=== PATIENT | female | born 1940 ===

== ENCOUNTER 2016-12-04 13:47 | Emergency (ER) | payer MEDICARE, MEDICAID ==
[2016-12-04 13:56] VITALS: BP 136/68; PULSE 58; RESP 16; TEMP 98; O2SAT 97
--- NOTE | 2016-12-04 14:42 | ED PDOC ---
Arrival/HPI - General Chief Complaint: Dizziness/Lightheaded Time Seen by Provider: 12/04/16 14:40 Historian: Patient, Family, Program Director [employer] (Juanpablonavid Loyda) - History of Present Illness Narrative History of Present Illness (Text): 12/04/16 14:17 A 76 year old female whose past medical history includes hypertension, presents to the emergency department (Program Director [employer] Loyda Chappell present) complaining of pressure behind her eyes and lightheadedness. The patient denies felling dizzy, contrary to triage.The patient is currently asymptomatic. Pt states these symptoms are similar to the symptoms she gets when her BP fluctuates or runs higher than usual. Reports compliance with metoprolol and lisinoprol. She notes that she has an appointment with her PMD tomorrow morning. Time/Duration: 1-3 hours, Other (Today) Symptom Onset: Sudden Symptom Course: Improving Context: Home Past Medical History - Provider Review Nursing Documentation Reviewed: Yes - Cardiac Hx Cardiac Disorders: Yes Hx Hypertension: Yes - Pulmonary Hx Respiratory Disorders: No - Neurological Hx Neurological Disorder: No - HEENT Hx HEENT Disorder: No - Renal Hx Renal Disorder: No - Endocrine/Metabolic Hx Endocrine Disorders: Yes Hx Hypothyroidism: Yes - Hematological/Oncological Hx Blood Disorders: No - Integumentary Hx Dermatological Disorder: No - Musculoskeletal/Rheumatological Hx Musculoskeletal Disorders: No - Gastrointestinal Hx Gastrointestinal Disorders: No - Genitourinary/Gynecological Hx Genitourinary Disorders: No - Psychiatric Hx Psychophysiologic Disorder: No Hx Substance Use: No - Surgical History Hx Appendectomy: Yes Family/Social History - Physician Review Nursing Documentation Reviewed: Yes Family/Social History: No Known Family HX Smoking Status: Never Smoked Hx Alcohol Use: No Hx Substance Use: No Allergies/Home Meds Allergies/Adverse Reactions: Allergies No Known Allergies Allergy (Verified 12/04/16 13:56) Home Medications: Home Meds Medication Instructions Recorded Confirmed Aspirin [Aspirin Chewable] 81 mg PO DAILY 12/04/16 12/04/16 Levothyroxine [Synthroid] 75 mcg PO DAILY 12/04/16 12/04/16 Lisinopril [Zestril] 2.5 mg PO DAILY 12/04/16 12/04/16 Metoprolol Tartrate [Lopressor] 25 mg PO BID 12/04/16 12/04/16 Simvastatin [Zocor] 20 mg PO HS 12/04/16 12/04/16 Review of Systems - Physician Review All systems were reviewed & negative as marked: Yes Physical Exam - Physical Exam Narrative Physical Exam (Text): 12/04/16 12:43 - Review of Systems Constitutional: Normal. absent: Fatigue, Weight Change, Fevers Eyes: (+) Pressure behind eyes. ENT: Normal Respiratory: Normal absent: SOB, Cough, Sputum Cardiovascular: Normal absent: Chest pain, Palpitations, Syncope Gastrointestinal: Normal absent: Abdominal pain, Diarrhea, Nausea, Vomiting Genitourinary: Normal. absent: Dysuria, Frequency, Hematuria Musculoskeletal: Normal. absent: Arthralgias, Back Pain, Neck Pain Skin: Normal Neurological: (+) Lightheadedness. absent: Focal Weakness Endocrine: Normal Hemo/Lymphatic: Normal Psychiatric: Normal - Physical exam Patient appears age appropriate, speaking full sentences without difficulty - Systems Exam Head: Present: Atraumatic, Normocephalic Pupils: Present: PERRL Extraocular Muscles: Present: EOMI Conjunctiva: Present: Normal Mouth: Present: Moist Mucous Membranes Neck: Present: Normal Range of Motion. No: MIDLINE TENDERNESS, Paraspinal Tenderness Respiratory/Chest: Present: Clear to Auscultation, Good Air Exchange. No: Respiratory Distress, Accessory Muscle Use, Tachypnic Cardiovascular: Present: Regular Rate and Rhythm, Normal S1, S2, Peripheral Pulses Present. No: Murmurs Abdomen: Present: Normal Bowel Sounds, No: Tenderness, Peritoneal Signs, Rebound, Guarding, Distention Back: Present: Normal Inspection. No: Midline Tenderness, Paraspinal Tenderness Upper Extremity: Present: Normal Inspection. No: Cyanosis, Edema Lower Extremity: Present: Normal Inspection. No: Edema Neurological: Present: GCS=15, Speech Normal, cranial nerves II through XII fully intact with no cerebellar abnormality, neuro-sensory fully intact. No focal neurological deficits. Skin: Present: Warm, Dry, Normal Color. No: Rashes Lymphatic: Present: OX3, NI, NC Psychiatric: Present: Alert, Oriented x 3, Normal Insight, Normal Concentration Vital Signs Reviewed: Yes Vital Signs Temp Pulse Resp BP Pulse Ox 12/04/16 13:50 98 F 58 L 16 136/68 97 Temperature: Afebrile Blood Pressure: Normal Pulse: Bradycardic Respiratory Rate: Normal Appearance: Positive for: Well-Appearing Pain Distress: None Mental Status: Positive for: Alert and Oriented X 3 Medical Decision Making ED Course and Treatment: 12/04/16 15:05 Impression: A 76 year old female patient with a complaint of lightheadedness and pressure behind eyes. States these symptoms are similar to her previous HTN symptoms and when she has BP fluctuations. Pt has no focal neurological deficits on examination and denies any complaints at this time. States she has an appt with PMD tmr. States she feels comfortable being dc'd home with outpatient f/u family bedside Pt states she understands to return to the ER right away for new or worsening symptoms or for inability to f/u with PMD or specialist as instructed. Patient states that she fully agrees with and understands discharge instructions. States that she agrees with the plan and disposition. Verbalized and repeated discharge instructions and plan. I have given the patient opportunity to ask any additional questions. - Scribe Statement The provider has reviewed the documentation as recorded by the Scribe Loyda Chappell Provider Scribe Attestation: All medical record entries made by the Scribe were at my direction and personally dictated by me. I have reviewed the chart and agree that the record accurately reflects my personal performance of the history, physical exam, medical decision making, and the department course for this patient. I have also personally directed, reviewed, and agree with the discharge instructions and disposition. Disposition/Present on Arrival - Present on Arrival Any Indicators Present on Arrival: No History of DVT/PE: No History of Uncontrolled Diabetes: No Urinary Catheter: No History of Decub. Ulcer: No History Surgical Site Infection Following: None - Disposition Have Diagnosis and Disposition been Completed?: Yes Diagnosis: Hypertension Disposition: HOME/ ROUTINE Disposition Time: 14:41 Patient Plan: Discharge Patient Problems: Current Active Problems Problem Status Onset Hypertension Acute Condition: GOOD Discharge Instructions (ExitCare): Hypertension (ED) Additional Instructions: PLEASE RETURN TO THE EMERGENCY DEPARTMENT FOR NEW OR WORSENING SYMPTOMS. RETURN RIGHT AWAY IF YOU CANNOT FOLLOW UP WITH YOUR PRIMARY CARE DOCTOR, CLINIC, OR SPECIALIST IN 1-2 DAYS. Forms: [employer] (Sinhala)
== END 2016-12-04 15:05 | disposition home or self-care (01) ==
LOC: ED 13:47
DX: I10 Essential (primary) hypertension (principal)

== ENCOUNTER 2017-06-13 23:06 | Emergency (ER) | payer MEDICARE, MEDICAID ==
[2017-06-14 00:21] VITALS: PULSE 87; TEMP 99.4
--- NOTE | 2017-06-14 00:47 | ED PDOC ---
Arrival/HPI - General Chief Complaint: Flu-like Symptoms Time Seen by Provider: 06/14/17 00:30 Historian: Patient, Family (Daughter) - History of Present Illness Narrative History of Present Illness (Text): 06/14/17 00:44 A 77 year old female , whose past medical history includes hypertension, hyperlipidemia, presents to the emergency department complaining of, as per the daughter, 3 day duration cold-like symptoms. The patient's daughter notes that the patient has been having a cough, fever, and chest pain. The patient states that the chest pain is exacerbated when she coughs. The patient notes that she had generalized body aches, but is currently only experiencing back pain. The patient did receive the flu shot in January 2017. She notes that she has been taking Yumiko [place] Plus for her symptoms. The patient denies headache, dizziness, shortness of breath, dyspnea on exertion, abdominal pain, nausea, vomiting, diarrhea, neck pain, urinary/bowel changes, or any other complaint. PMD: Dr. Connors Time/Duration: Other (3 Days) Symptom Onset: Sudden Symptom Course: Unchanged Activities at Onset: Rest, Light Context: Home Past Medical History - Provider Review Nursing Documentation Reviewed: Yes - Cardiac Hx Cardiac Disorders: Yes Hx Hypertension: Yes - Pulmonary Hx Respiratory Disorders: No - Neurological Hx Neurological Disorder: No - HEENT Hx HEENT Disorder: No - Renal Hx Renal Disorder: No - Endocrine/Metabolic Hx Endocrine Disorders: Yes Hx Hypothyroidism: Yes - Hematological/Oncological Hx Blood Disorders: No - Integumentary Hx Dermatological Disorder: No - Musculoskeletal/Rheumatological Hx Musculoskeletal Disorders: No - Gastrointestinal Hx Gastrointestinal Disorders: No - Genitourinary/Gynecological Hx Genitourinary Disorders: No - Psychiatric Hx Psychophysiologic Disorder: No Hx Substance Use: No - Surgical History Hx Appendectomy: Yes Family/Social History - Physician Review Nursing Documentation Reviewed: Yes Family/Social History: No Known Family HX Smoking Status: Never Smoked Hx Alcohol Use: No Hx Substance Use: No Allergies/Home Meds Allergies/Adverse Reactions: Allergies No Known Allergies Allergy (Verified 12/04/16 13:56) Home Medications: Home Meds Medication Instructions Recorded Confirmed Aspirin [Aspirin Chewable] 81 mg PO DAILY 12/04/16 06/14/17 Levothyroxine [Synthroid] 75 mcg PO DAILY 12/04/16 06/14/17 Lisinopril [Zestril] 2.5 mg PO DAILY 12/04/16 06/14/17 Metoprolol Tartrate [Lopressor] 25 mg PO BID 12/04/16 06/14/17 Simvastatin [Zocor] 20 mg PO HS 12/04/16 06/14/17 Verapamil [Verapamil HCl] 40 mg PO DAILY 06/14/17 06/14/17 Review of Systems - Physician Review All systems were reviewed & negative as marked: Yes - Review of Systems Constitutional: Fevers Respiratory: Cough Cardiovascular: Chest Pain. absent: LEMUS Gastrointestinal: absent: Abdominal Pain, Diarrhea, Nausea, Vomiting Musculoskeletal: Back Pain. absent: Neck Pain Neurological: absent: Headache, Dizziness Physical Exam Vital Signs Reviewed: Yes Vital Signs Temp Pulse Resp BP Pulse Ox 06/14/17 00:21 99.4 F 87 20 151/87 H 97 Temperature: Afebrile Blood Pressure: Hypertensive Pulse: Regular Respiratory Rate: Normal Appearance: Positive for: Well-Appearing, Non-Toxic, Comfortable Pain Distress: None Mental Status: Positive for: Alert and Oriented X 3 - Systems Exam Head: Present: Atraumatic, Normocephalic Pupils: Present: PERRL Extroacular Muscles: Present: EOMI Conjunctiva: Present: Normal Mouth: Present: Moist Mucous Membranes Neck: Present: Normal Range of Motion Respiratory/Chest: Present: Clear to Auscultation, Good Air Exchange. No: Respiratory Distress, Accessory Muscle Use Cardiovascular: Present: Regular Rate and Rhythm, Normal S1, S2. No: Murmurs Abdomen: Present: Normal Bowel Sounds. No: Tenderness, Distention, Peritoneal Signs Back: Present: Normal Inspection Upper Extremity: Present: Normal Inspection. No: Cyanosis, Edema Lower Extremity: Present: Normal Inspection. No: Edema Neurological: Present: GCS=15, CN II-XII Intact, Speech Normal Skin: Present: Warm, Dry, Normal Color. No: Rashes Psychiatric: Present: Alert, Oriented x 3, Normal Insight, Normal Concentration Medical Decision Making ED Course and Treatment: 06/14/17 00:48 Impression: A 77 year old female presents to the emergency department complaining of fever, cough, chest pain, back pain for 3 days. Plan: -- Chest X-ray -- Urinalysis -- Blood Culture -- Labs -- Reassess and disposition Progress Notes: 06/14/17 03:05: Discussed positive flue test result with patient. Will discharge patient home on Tamiflu. Patient is aware of and agrees with plan. - Lab Interpretations Lab Results: 06/14/17 00:50 06/14/17 00:50 Lab Results 06/14/17 01:25: Urine Color Yellow, Urine Appearance Sl cloudy, Urine pH 8.0, Ur Specific [place] 1.015, Urine Protein Negative, Urine Glucose (UA) Negative, Urine Ketones Negative, Urine Blood Small H, Urine Nitrate Negative, Urine Bilirubin Negative, Urine Urobilinogen 0.2, Ur Leukocyte Esterase Trace H, Urine RBC 1 - 3, Urine WBC 1 - 3, Ur Epithelial Cells 0 - 2, Urine Bacteria Few 06/14/17 00:50: Sodium 141, Chloride 104, Potassium 4.4, Carbon Dioxide 27, Anion Gap 14, BUN 9, Creatinine 0.6 L, Est GFR ( Amer) > 60, Est GFR (Non -Af Amer) > 60, Random Glucose 107, Calcium 10.5, Total Bilirubin 0.4, AST 46 H , ALT 50, Alkaline Phosphatase 99, Total Protein 7.9, Albumin 4.4, Globulin 3.5 , Albumin/Globulin Ratio 1.3 06/14/17 00:50: pO2 36, VBG pH 7.38, VBG pCO2 46.0, VBG HCO3 27.2, VBG Total CO2 28.6 H, VBG O2 Sat (Calc) 76.6 H, VBG Base Excess 1.5, VBG Potassium 4.2, Sodium 138.0, Chloride 105.0, Glucose 107 H, Lactate 1.4, FiO2 21.0, Venous Blood Potassium 4.2 06/14/17 00:50: Influenza Typ A,B (EIA) Pos for influenza a H 06/14/17 00:50: WBC 6.2, RBC 4.48, Hgb 13.7, Hct 41.5, MCV 92.6, MCH 30.6, MCHC 33.0, RDW 14.0, Plt Count 202, MPV 11.0, Gran % 54.9, Lymph % (Auto) 30.6, [place] % (Auto) 12.9 H, Eos % (Auto) 1.4 L, Baso % (Auto) 0.2, Gran # 3.41, Lymph # ( Auto) 1.9, [place] # (Auto) 0.8 H, Eos # (Auto) 0.1, Baso # (Auto) 0.01 I have reviewed the lab results: Yes - RAD Interpretation Radiology Orders: 06/14/17 00:38 CXR [CHEST TWO VIEWS (PA/LAT)] [RAD] Stat - Medication Orders Current Medication Orders: Discontinued Medications Oseltamivir Phosphate (Tamiflu Cap) 75 mg PO ONCE ONE PRN Reason: Protocol Stop: 06/14/17 02:42 Last Admin: 06/14/17 03:02 Dose: 75 mg - PA / FAMILY NURSE / Resident Statement MD/DO has reviewed & agrees with the documentation as recorded. - Scribe Statement The provider has reviewed the documentation as recorded by the Yosefibnavid Chappell Provider Scribe Attestation: All medical record entries made by the Scribe were at my direction and personally dictated by me. I have reviewed the chart and agree that the record accurately reflects my personal performance of the history, physical exam, medical decision making, and the department course for this patient. I have also personally directed, reviewed, and agree with the discharge instructions and disposition. Disposition/Present on Arrival - Present on Arrival Any Indicators Present on Arrival: No History of DVT/PE: No History of Uncontrolled Diabetes: No Urinary Catheter: No History of Decub. Ulcer: No History Surgical Site Infection Following: None - Disposition Have Diagnosis and Disposition been Completed?: Yes Diagnosis: Influenza A Disposition: HOME/ ROUTINE Disposition Time: 02:46 Patient Plan: Discharge Patient Problems: Current Active Problems Problem Status Onset Influenza A Acute Condition: GOOD Discharge Instructions (ExitCare): Influenza (ED) Prescriptions: Oseltamivir [Tamiflu] 75 mg PO BID #10 cap Forms: [employer] (Persian)
[2017-06-14 01:12] LABS: BASO # 0.01 K/mm3 (0.0-2.0); BASO % 0.2 % (0.0-3.0); EOS # 0.1 (0.0-0.7); EOS % 1.4 % (1.5-5.0); GRAN # 3.41 (1.4-6.5); GRAN % 54.9 % (50.0-68.0); HEMOGLOBIN 13.7 g/dL (12.0-16.0); LYMPH # 1.9 (1.2-3.4); LYMPH % 30.6 % (22.0-35.0); MEAN CELL VOLUME 92.6 fl (80.0-105.0); MEAN CORPUSCULAR HEMOGLOBIN 30.6 pg (25.0-35.0); MONO # 0.8 (0.1-0.6); MONO % 12.9 % (1.0-6.0); RBC 4.48 10^6/uL (3.5-6.1); WHITE BLOOD COUNT 6.2 10^3/ul (4.5-11.0)
[2017-06-14 01:31] LABS: ALB/GLOB RATIO 1.3 (1.1-1.8); ALBUMIN 4.4 g/dL (3.0-4.8); ALT/SGPT 50 U/L (7-56); AST/SGOT 46 U/L (14-36); BLOOD UREA NITROGEN 9 mg/dL (7-21); CALCIUM 10.5 mg/dL (8.4-10.5); GFR AFRICAN-AMERICAN > 60; GFR NON-AFRICAN AMERICAN > 60
[2017-06-14 01:36] LABS: VENOUS BLOOD GAS BASE EXCESS 1.5 mmol/L (0.0-2.0); VENOUS BLOOD GAS PO2 36 mm/Hg (30-55); VENOUS BLOOD PH 7.38 (7.32-7.43)
[2017-06-14 02:10] LABS: URINE APPEARANCE SL CLOUDY (CLEAR); URINE BILIRUBIN NEGATIVE (NEGATIVE); URINE BLOOD SMALL (NEGATIVE); URINE COLOR YELLOW (YELLOW); URINE GLUCOSE (UA) NEGATIVE (NEGATIVE); URINE LEUKOCYTE ESTERASE TRACE Leu/uL (NEGATIVE); URINE NITRATE NEGATIVE (NEGATIVE); URINE PROTEIN NEGATIVE mg/dL (<30 mg/dL); URINE UROBILINOGEN 0.2 E.U./dL (<1 E.U./dL)
[2017-06-14 02:28] LABS: URINE BACTERIA FEW (NEG); URINE EPITHELIAL CELLS 0 - 2 /hpf (0-5)
[2017-06-14 03:23] VITALS: BP 138/70; RESP 18; O2SAT 99
--- NOTE | 2017-06-14 09:34 | RAD ---
HISTORY: cough COMPARISON: Comparison is made with 06/12/2013 TECHNIQUE: Chest PA and lateral FINDINGS: LUNGS: Small hazy opacity seen at the left lung base may represent atelectasis or pneumonia. PLEURA: No significant pleural effusion identified. No pneumothorax apparent. CARDIOVASCULAR: Normal. OSSEOUS STRUCTURES: No significant abnormalities. VISUALIZED UPPER ABDOMEN: Normal. OTHER FINDINGS: None. IMPRESSION: Small opacity at the left lung base may represent atelectasis or pneumonia.
== END 2017-06-14 03:23 | disposition home or self-care (01) ==
LOC: ED 23:06
DX: J09.X2 Influenza due to identified novel influenza A virus with other respiratory manifestations (principal); I10 Essential (primary) hypertension; E78.5 Hyperlipidemia, unspecified

== ENCOUNTER 2018-09-15 15:55 | Inpatient (IN) | payer MEDICARE, MEDICAID ==
[2018-09-15 16:04] VITALS: BMI 26.2
[2018-09-15] MEDS ORDERED: Sodium Chloride 0.9% 1,000 ML IV STA (16:15)
--- NOTE | 2018-09-15 16:37 | ED PDOC ---
Arrival/HPI - General Chief Complaint: Fever Time Seen by Provider: 09/15/18 15:59 Historian: Patient - History of Present Illness Narrative History of Present Illness (Text): 09/15/18 15:59 Margarita Elliott is a 78 year old female, with a past medical history of hypertension and hyperlipidemia, who presents to the emergency department complaining of fever and body aches since 2 days. Patient also notes mild headache, chills urinary frequency, and generalized weakness. Patient informs of fever at 101.3 F. Patient denies nasal congestion, headaches, dizziness, photophobia, chest pain, shortness of breath, cough, abdominal pain, nausea, vomiting, diarrhea, dysuria, hematuria, bloody / dark stools, sick contact, or any other complaints. Time/Duration: < week (2 days) Symptom Onset: Gradual Activities at Onset: Light Context: Home Past Medical History - Provider Review Nursing Documentation Reviewed: Yes - Cardiac Hx Cardiac Disorders: Yes Hx Hypertension: Yes - Pulmonary Hx Respiratory Disorders: No - Neurological Hx Neurological Disorder: No - HEENT Hx HEENT Disorder: No - Renal Hx Renal Disorder: No - Endocrine/Metabolic Hx Endocrine Disorders: Yes Hx Hypothyroidism: Yes - Hematological/Oncological Hx Blood Disorders: No - Integumentary Hx Dermatological Disorder: No - Musculoskeletal/Rheumatological Hx Musculoskeletal Disorders: No - Gastrointestinal Hx Gastrointestinal Disorders: Yes - Genitourinary/Gynecological Hx Genitourinary Disorders: No - Psychiatric Hx Psychophysiologic Disorder: No Hx Substance Use: No - Surgical History Hx Appendectomy: Yes - Anesthesia Hx Anesthesia: Yes Hx Anesthesia Reactions: No Hx Malignant Hyperthermia: No Family/Social History - Physician Review Nursing Documentation Reviewed: Yes Family/Social History: Unknown Family HX Smoking Status: Never Smoked Hx Alcohol Use: No Hx Substance Use: No Allergies/Home Meds Allergies/Adverse Reactions: Allergies No Known Allergies Allergy (Verified 12/04/16 13:56) Home Medications: Home Meds Medication Instructions Recorded Confirmed Aspirin [Aspirin Chewable] 81 mg PO DAILY 12/04/16 10/18/17 Levothyroxine [Synthroid] 75 mcg PO DAILY 12/04/16 10/18/17 Metoprolol Tartrate [Lopressor] 25 mg PO BID 12/04/16 10/18/17 Simvastatin [Zocor] 20 mg PO HS 12/04/16 10/18/17 Verapamil [Verapamil HCl] 40 mg PO DAILY 06/14/17 10/18/17 Review of Systems - Physician Review All systems were reviewed & negative as marked: Yes - Review of Systems Constitutional: Fevers, Other (body aches, chills, generalized weakness) Eyes: absent: Photophobia Respiratory: absent: SOB, Cough Cardiovascular: absent: Chest Pain Gastrointestinal: absent: Abdominal Pain, Diarrhea, Nausea, Vomiting, Hematochezia, Other (melena) Genitourinary Female: Frequency. absent: Dysuria, Hematuria Neurological: absent: Headache, Dizziness Physical Exam Vital Signs Reviewed: Yes Vital Signs Temp Pulse Resp BP Pulse Ox 09/15/18 16:17 98.7 F 74 18 123/50 L 96 Temperature: Afebrile Blood Pressure: Normal Pulse: Regular Respiratory Rate: Normal Appearance: Positive for: Well-Appearing, Non-Toxic, Comfortable Pain Distress: None Mental Status: Positive for: Alert and Oriented X 3 - Systems Exam Head: Present: Atraumatic, Normocephalic Pupils: Present: PERRL Extroacular Muscles: Present: EOMI Conjunctiva: Present: Normal Mouth: Present: Moist Mucous Membranes Neck: Present: Normal Range of Motion. No: Meningeal Signs (negative brudzinski's sign, negative kerning sign. ) Respiratory/Chest: Present: Clear to Auscultation, Good Air Exchange. No: Respiratory Distress, Accessory Muscle Use Cardiovascular: Present: Regular Rate and Rhythm, Normal S1, S2. No: Murmurs Abdomen: Present: Normal Bowel Sounds. No: Tenderness, Distention, Peritoneal Signs, Rebound, Guarding Back: Present: Normal Inspection Upper Extremity: Present: Normal Inspection, Neurovascularly Intact, Other (5/5 strength, negative Kernig's sign). No: Cyanosis, Edema Lower Extremity: Present: Normal Inspection, Neurovascularly Intact, Other (5/5 strength). No: Edema Neurological: Present: GCS=15, CN II-XII Intact, Speech Normal, Motor Func Grossly Intact, Normal Sensory Function Skin: Present: Warm, Dry, Normal Color. No: Rashes Psychiatric: Present: Alert, Oriented x 3, Normal Insight, Normal Concentration Medical Decision Making ED Course and Treatment: 09/15/18 15:59 Impression: Patient is a 78 year old female, with a past medical history hypertension, hyperlipidemia, and hypothyroidism, who presents to the emergency department complaining of fevers and body aches since 2 days. Plan: -- Reassess and disposition Prior Visits: Notes and results from previous visits were reviewed. Patient was last seen in the emergency department on Progress Notes: 09/15/18 17:32 Patient noted to have elevated liver enzymes, alk phos and bili. Her abdominal exam is normal. No tenderness. ND. BS x4. US ordered STAT. Acetaminophen and Hepatititis level. 09/15/18 18:34 Abdominal US Dictator : Drew Guadarrama MD IMPRESSION: Cholelithiasis. No sonographic evidence of acute cholecystitis. Mild fullness right collecting system. No visible obstructing lesion noted. Case discussed with Dr. Morrow who will admit this patient to her service and is requesting Dr. Wise for GI. 09/15/18 18:50 I discussed this case with Dr. Claudio AGUILA who recommends adding an LDH and treating with Rocephin IV. He will order an MRCP for tomorrow. Results were discussed with family. - Critical Care Critical Care Minutes: 30 minutes - RAD Interpretation Radiology Orders: 09/15/18 16:14 CHEST PORTABLE [RAD] Stat - EKG Interpretation EKG Interpretation (Text): 09/15/18 15:59 Reviewed EKG, shows: NSR at 70 BPM. Incomplete RBBB. Interpreted by ED Physician: Yes Type: 12 lead EKG - Medication Orders Current Medication Orders: Sodium Chloride (Sodium Chloride 0.9%) 1,000 mls @ 999 mls/hr IV .Q1H1M STA Stop: 09/15/18 17:15 - Scribe Statement The provider has reviewed the documentation as recorded by the Scribnavid Hernandez All medical record entries made by the Scribe were at my direction and personally dictated by me. I have reviewed the chart and agree that the record accurately reflects my personal performance of the history, physical exam, medical decision making, and the department course for this patient. I have also personally directed, reviewed, and agree with the discharge instructions and disposition. Disposition/Present on Arrival - Present on Arrival Any Indicators Present on Arrival: No History of DVT/PE: No History of Uncontrolled Diabetes: No Urinary Catheter: No History of Decub. Ulcer: No History Surgical Site Infection Following: None - Disposition Have Diagnosis and Disposition been Completed?: Yes Diagnosis: Elevated transaminase level, Fever, Cholelithiasis Disposition: HOSPITALIZED Disposition Time: 18:36 Patient Plan: Admission Patient Problems: Current Active Problems Problem Status Onset Elevated transaminase level Acute Fever Acute Condition: FAIR
[2018-09-15 16:46] LABS: VENOUS BLOOD GAS BASE EXCESS -3.4 mmol/L (0.0-2.0); VENOUS BLOOD GAS PO2 70 mm/Hg (30-55); VENOUS BLOOD PH 7.41 (7.32-7.43)
[2018-09-15 17:03] LABS: BASO # 0.01 K/mm3 (0.0-2.0); BASO % 0.2 % (0.0-3.0); EOS % 0.5 % (1.5-5.0); HEMOGLOBIN 12.7 g/dL (12.0-16.0); LYMPH # 0.4 (1.2-3.4); LYMPH % 6.6 % (22.0-35.0); MEAN CELL VOLUME 91.1 fl (80.0-105.0); MEAN CORPUSCULAR HEMOGLOBIN 30.4 pg (25.0-35.0); MEAN CORPUSCULAR HGB CONC 33.3 g/dl (31.0-37.0); MEAN PLATELET VOLUME 11.1 fl (7.0-11.0); MONO # 0.3 (0.1-0.6); MONO % 5.4 % (1.0-6.0); RBC 4.18 10^6/uL (3.5-6.1); RED CELL DISTRIBUTION WIDTH 13.5 % (11.5-14.5); WHITE BLOOD COUNT 5.7 10^3/uL (4.5-11.0)
[2018-09-15 17:11] LABS: ALB/GLOB RATIO 1.3 (1.1-1.8); ALBUMIN 4.2 g/dL (3.0-4.8); BLOOD UREA NITROGEN 15 mg/dL (7-21); CALCIUM 9.9 mg/dL (8.4-10.5); GFR NON-AFRICAN AMERICAN > 60
[2018-09-15 17:23] LABS: ALT/SGPT 1338 U/L (7-56); AST/SGOT 1263 U/L (14-36)
[2018-09-15 18:01] LABS: URINE BILIRUBIN NEGATIVE (NEGATIVE); URINE BLOOD SMALL (NEGATIVE); URINE GLUCOSE (UA) NEGATIVE (NEGATIVE); URINE LEUKOCYTE ESTERASE NEGATIVE Leu/uL (NEGATIVE); URINE PROTEIN NEGATIVE mg/dL (<30 mg/dL); URINE UROBILINOGEN 0.2 E.U./dL (<1 E.U./dL)
[2018-09-15 18:03] LABS: URINE APPEARANCE CLEAR (CLEAR); URINE COLOR LIGHT YELLOW (YELLOW)
--- NOTE | 2018-09-15 18:29 | US ---
Date of service: 09/15/2018 HISTORY: elev liver enzymes COMPARISON: None. TECHNIQUE: Sonographic evaluation of the abdomen. FINDINGS: LIVER: Measures 12.6 cm. Patent portal and hepatic venous systems. Hepatopedal blood flow. Fatty infiltration manifest ultrasonographically as increased echogenicity of the liver parenchyma. No mass. No intrahepatic bile duct dilatation. GALLBLADDER: Cholelithiasis. Negative study for gallbladder wall thickening, pericholecystic fluid, sonographic Martinez's sign. COMMON BILE DUCT: Measures 8.7 mm. No stones. No dilatation. PANCREAS: Unremarkable as visualized. No mass. No ductal dilatation. RIGHT KIDNEY: Measures 5.5 x 12cm. Mild fullness in the right collecting system. The ureter is not visible. LEFT KIDNEY: Measures 4.8 x 12.2cm. Normal echogenicity. No calculus, mass, or hydronephrosis. SPLEEN: Normal in size and contour. No mass. AORTA: No aneurysmal dilatation. IVC: Unremarkable. OTHER FINDINGS: None. IMPRESSION: Cholelithiasis. No sonographic evidence of acute cholecystitis. Mild fullness right collecting system. No visible obstructing lesion noted.
[2018-09-15] MEDS ORDERED: cefTRIAXone 1 gm 1 GM/100 ML BAG IVPB STA (18:45)
[2018-09-15 19:23] LABS: INR 1.08; PARTIAL THROMBOPLASTIN TIME 38.8 Seconds (26.9-38.3)
--- NOTE | 2018-09-15 19:27 | CARD ---
APPROVED REPORT Date of service: 09/15/2018 EKG Measurement Heart [id number] <Conclusion> Normal sinus rhythm Incomplete right bundle branch block Borderline ECG
[2018-09-15 22:30] LABS: HEPATITIS B SURFACE AG Negative (NEGATIVE)
[2018-09-15 22:36] LABS: HEPATITIS A IGM NEGATIVE (NEGATIVE); HEPATITIS B CORE AB NEGATIVE (NEGATIVE)
[2018-09-15 22:47] LABS: HEPATITIS C ANTIBODY NEGATIVE (NEGATIVE)
--- NOTE | 2018-09-16 08:22 | RAD ---
Date of service: 09/15/2018 HISTORY: fever COMPARISON: No prior. TECHNIQUE: Chest PA and lateral views FINDINGS: LUNGS: No active pulmonary disease. PLEURA: No significant pleural effusion identified. No pneumothorax apparent. CARDIOVASCULAR: Aortic calcification Normal cardiac size. No pulmonary vascular congestion. OSSEOUS STRUCTURES: No significant abnormalities. VISUALIZED UPPER ABDOMEN: Normal. OTHER FINDINGS: None. IMPRESSION: No active disease.
[2018-09-16 08:32] LABS: ALB/GLOB RATIO 1.2 (1.1-1.8); ALBUMIN 3.8 g/dL (3.0-4.8); ALT/SGPT 891 U/L (7-56); AST/SGOT 613 U/L (14-36); BILIRUBIN,DIRECT 1.8 mg/dL (0.0-0.4); BLOOD UREA NITROGEN 7 mg/dL (7-21); CALCIUM 9.3 mg/dL (8.4-10.5); GFR NON-AFRICAN AMERICAN > 60
--- NOTE | 2018-09-16 09:40 | CP.PCM.CON ---
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 She states she first noticed fever of 101F on Saturday evening. Developed diffuse myalgias and vague RUQ/R flank discomfort yesterday along with dark yellow urine. She came to the ED as symptoms persisted. On routine blood work, patient noted to have elevated LFTs > 10 times the upper limit of normal in a mixed pattern. U/S performed showed a dilated CBD at 8.7mm and cholelithiasis without obvious choledocolithiasis. Presently, she continues to admit to ongoing fever and decreased appetite but otherwise is doing well. Denies change in bowel habits, nausea, vomiting, recent EtOH use, new medications/supplements/vitamins, travel. 12 system ROS performed and negative except where stated PMHx: See HPI PSHx: Gastric wedge resection for GIST, appendectomy FHx: Discussed with patient and she denies significant family history Social: Denies tobacco, EtOH or illicit drug use Endo: September 2017 - EGD/Colon - 10mm nodule in fundus (GIST); diverticulosis, descending colon tubular adenoma October 2017 - EUS/EMR of GIST, + margins, low grade lesion Past Patient History - Past Medical History & Family History Past Medical History?: Yes - Past Social History Smoking Status: Never Smoked - CARDIAC Hx Cardiac Disorders: Yes Hx Hypertension: Yes - PULMONARY Hx Respiratory Disorders: No - NEUROLOGICAL Hx Neurological Disorder: No - HEENT Hx HEENT Problems: No - RENAL Hx Chronic Kidney Disease: No - ENDOCRINE/METABOLIC Hx Endocrine Disorders: Yes Hx Hypothyroidism: Yes - HEMATOLOGICAL/ONCOLOGICAL Hx Blood Disorders: No - INTEGUMENTARY Hx Dermatological Problems: No - MUSCULOSKELETAL/RHEUMATOLOGICAL Hx Musculoskeletal Disorders: No - GASTROINTESTINAL Hx Gastrointestinal Disorders: Yes - GENITOURINARY/GYNECOLOGICAL Hx Genitourinary Disorders: No - PSYCHIATRIC Hx Psychophysiologic Disorder: No - SURGICAL HISTORY Hx Appendectomy: Yes - ANESTHESIA Hx Anesthesia: Yes Hx Anesthesia Reactions: No Hx Malignant Hyperthermia: No Meds Allergies/Adverse Reactions: Allergies Allergy/AdvReac Type Severity Reaction Status Date / Time No Known Allergies Allergy Verified 12/04/16 13:56 - Medications Medications: Current Medications Atorvastatin Calcium (Lipitor) 10 mg PO HS [facility] Last Admin: 09/15/18 22:42 Dose: 10 mg Levothyroxine Sodium (Synthroid) 75 mcg PO DAILY [facility] Metoprolol Tartrate (Lopressor) 25 mg PO BID [facility] Verapamil HCl (Calan Tab) 40 mg PO DAILY [facility] Physical Exam - Constitutional Appears: Non-toxic, No Acute Distress - Eye Exam Eye Exam: EOMI, PERRL - ENT Exam ENT Exam: Mucous Membranes Moist - Respiratory Exam Respiratory Exam: Clear to Auscultation Bilateral. absent: Rales, Rhonchi, Wheezes - Cardiovascular Exam Cardiovascular Exam: RRR, +S1, +S2 - GI/Abdominal Exam GI & Abdominal Exam: Normal Bowel Sounds, Soft. absent: Distended, Firm, Guarding, Hernia, Mass, Organomegaly, Rebound, Rigid, Tenderness - Extremities Exam Extremities exam: Positive for: normal inspection. Negative for: pedal edema - Neurological Exam Neurological exam: Alert, Oriented x3 - Psychiatric Exam Psychiatric exam: Normal Affect, Normal Mood - Skin Skin Exam: Dry, Warm Results - Vital Signs Recent Vital Signs: Last Vital Signs Temp 98.3 F 09/16/18 06:00 Pulse 71 09/16/18 06:00 Resp 18 09/16/18 06:00 BP 125/65 09/16/18 06:00 Pulse Ox 97 09/16/18 06:00 - Labs Result Diagrams: 09/15/18 16:54 09/16/18 08:00 Labs: Laboratory Results - last 24 hr 09/15/18 09/15/18 09/15/18 16:40 16:42 16:54 WBC 5.7 RBC 4.18 Hgb 12.7 Hct 38.1 MCV 91.1 MCH 30.4 MCHC 33.3 RDW 13.5 Plt Count 245 MPV 11.1 H Neut % (Auto) 87.3 H Lymph % (Auto) 6.6 L [place] % (Auto) 5.4 Eos % (Auto) 0.5 L Baso % (Auto) 0.2 Lymph # (Auto) 0.4 L [place] # (Auto) 0.3 Eos # (Auto) 0.0 Baso # (Auto) 0.01 Absolute Neuts (auto) 4.99 PT 12.0 INR 1.08 APTT 38.8 H pO2 70 H VBG pH 7.41 VBG pCO2 32.0 L VBG HCO3 20.3 L VBG Total CO2 21.3 L VBG O2 Sat (Calc) 96.8 H VBG Base Excess -3.4 L VBG Potassium 3.8 Sodium 135.0 Chloride 107.0 Glucose 140 H Lactate 1.2 FiO2 21.0 Potassium Carbon Dioxide Anion Gap BUN Creatinine Est GFR ( Amer) Est GFR (Non-Af Amer) Random Glucose Calcium Magnesium Total Bilirubin Direct Bilirubin AST ALT Alkaline Phosphatase Lactate Dehydrogenase Total Protein Albumin Globulin Albumin/Globulin Ratio Lipase Venous Blood Potassium 3.8 Urine Color Urine Appearance Urine pH Ur Specific [place] Urine Protein Urine Glucose (UA) Urine Ketones Urine Blood Urine Nitrate Urine Bilirubin Urine Urobilinogen Ur Leukocyte Esterase Urine RBC Urine WBC Ur Epithelial Cells Acetaminophen Hepatitis A IgM Ab Hep Bs Antigen Hep B Core IgM Ab Hepatitis C Antibody Influenza Typ A,B (EIA) 09/15/18 09/15/18 09/15/18 16:54 16:54 16:54 WBC RBC Hgb Hct MCV MCH MCHC RDW Plt Count MPV Neut % (Auto) Lymph % (Auto) [place] % (Auto) Eos % (Auto) Baso % (Auto) Lymph # (Auto) [place] # (Auto) Eos # (Auto) Baso # (Auto) Absolute Neuts (auto) PT INR APTT pO2 VBG pH VBG pCO2 VBG HCO3 VBG Total CO2 VBG O2 Sat (Calc) VBG Base Excess VBG Potassium Sodium 137 Chloride 107 Glucose Lactate FiO2 Potassium 4.0 Carbon Dioxide 22 Anion Gap 12 BUN 15 Creatinine 0.7 Est GFR ( Amer) > 60 Est GFR (Non-Af Amer) > 60 Random Glucose 145 H Calcium 9.9 Magnesium 2.2 Total Bilirubin 2.4 H Direct Bilirubin AST 1263 H ALT 1338 H Alkaline Phosphatase 188 H D Lactate Dehydrogenase Total Protein 7.5 Albumin 4.2 Globulin 3.3 Albumin/Globulin Ratio 1.3 Lipase 54 Venous Blood Potassium Urine Color Urine Appearance Urine pH Ur Specific [place] Urine Protein Urine Glucose (UA) Urine Ketones Urine Blood Urine Nitrate Urine Bilirubin Urine Urobilinogen Ur Leukocyte Esterase Urine RBC Urine WBC Ur Epithelial Cells Acetaminophen Hepatitis A IgM Ab Negative Hep Bs Antigen Negative Hep B Core IgM Ab Negative Hepatitis C Antibody Negative Influenza Typ A,B (EIA) 09/15/18 09/15/1819 16:54 16:54 17:00 WBC RBC Hgb Hct MCV MCH MCHC RDW Plt Count MPV Neut % (Auto) Lymph % (Auto) [place] % (Auto) Eos % (Auto) Baso % (Auto) Lymph # (Auto) [place] # (Auto) Eos # (Auto) Baso # (Auto) Absolute Neuts (auto) PT INR APTT pO2 VBG pH VBG pCO2 VBG HCO3 VBG Total CO2 VBG O2 Sat (Calc) VBG Base Excess VBG Potassium Sodium Chloride Glucose Lactate FiO2 Potassium Carbon Dioxide Anion Gap BUN Creatinine Est GFR ( Amer) Est GFR (Non-Af Amer) Random Glucose Calcium Magnesium Total Bilirubin Direct Bilirubin AST ALT Alkaline Phosphatase Lactate Dehydrogenase 3234 H Total Protein Albumin Globulin Albumin/Globulin Ratio Lipase Venous Blood Potassium Urine Color Urine Appearance Urine pH Ur Specific [place] Urine Protein Urine Glucose (UA) Urine Ketones Urine Blood Urine Nitrate Urine Bilirubin Urine Urobilinogen Ur Leukocyte Esterase Urine RBC Urine WBC Ur Epithelial Cells Acetaminophen 17.0 Hepatitis A IgM Ab Hep Bs Antigen Hep B Core IgM Ab Hepatitis C Antibody Influenza Typ A,B (EIA) Negative for flu a/b 09/15/18 09/16/18 17:53 08:00 WBC RBC Hgb Hct MCV MCH MCHC RDW Plt Count MPV Neut % (Auto) Lymph % (Auto) [place] % (Auto) Eos % (Auto) Baso % (Auto) Lymph # (Auto) [place] # (Auto) Eos # (Auto) Baso # (Auto) Absolute Neuts (auto) PT INR APTT pO2 VBG pH VBG pCO2 VBG HCO3 VBG Total CO2 VBG O2 Sat (Calc) VBG Base Excess VBG Potassium Sodium 142 Chloride 112 H Glucose Lactate FiO2 Potassium 4.0 Carbon Dioxide 24 Anion Gap 10 BUN 7 Creatinine 0.5 L Est GFR ( Amer) > 60 Est GFR (Non-Af Amer) > 60 Random Glucose 105 Calcium 9.3 Magnesium Total Bilirubin 2.4 H Direct Bilirubin 1.8 H AST 613 H D ALT 891 H Alkaline Phosphatase 187 H Lactate Dehydrogenase Total Protein 6.9 Albumin 3.8 Globulin 3.1 Albumin/Globulin Ratio 1.2 Lipase Venous Blood Potassium Urine Color Light yellow Urine Appearance Clear Urine pH 7.0 Ur Specific [place] <= 1.005 Urine Protein Negative Urine Glucose (UA) Negative Urine Ketones Negative Urine Blood Small H Urine Nitrate Negative Urine Bilirubin Negative Urine Urobilinogen 0.2 Ur Leukocyte Esterase Negative Urine RBC 1 - 3 H Urine WBC None Ur Epithelial Cells None Acetaminophen Hepatitis A IgM Ab Hep Bs Antigen Hep B Core IgM Ab Hepatitis C Antibody Influenza Typ A,B (EIA) Assessment & Plan - Assessment and Plan (Free Text) Assessment: Patient is a 78yo female with PMHx significant for HTN, dyslipidemia, hypothyroidism, 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 who presented to the ER with complaint of fever and malaise -Elevated LFTs - mixed picture, R/O choledocolithiasis or underlying obstructive lesion -Febrile illness, R/O cholangitis Plan: -Start Ceftriaxone 1g IV QD -Repeat LFTs downtrending, direct hyperbilirubinemia noted -U/S reviewed - CBD dilated -Check MRCP, NPO until test performed -Can have liquid diet after MRCP -Patient for consideration of EGD/EUS/ERCP tomorrow pending findings -Hold Lipitor in setting of acutely elevated LFTs - Date & Time Date: 09/16/18 Time: 07:30 <Juventino Snyder V - Last Filed: 09/17/18 00:33> Meds - Medications Medications: Current Medications Atorvastatin Calcium (Lipitor) 10 mg PO HS [facility] Last Admin: 09/15/18 22:42 Dose: 10 mg Ceftriaxone Sodium (Rocephin 1 Gram Ivpb) 1 gm in 100 mls @ 100 mls/hr IVPB DAILY [facility]; Protocol Stop: 09/19/18 10:59 Last Admin: 09/16/18 10:45 Dose: 100 mls/hr Sodium Chloride (Sodium Chloride 0.9%) 1,000 mls @ 75 mls/hr IV .[id number] [facility] Last Admin: 09/16/18 10:46 Dose: 75 mls/hr Levothyroxine Sodium (Synthroid) 75 mcg PO DAILY [facility] Last Admin: 09/16/18 10:02 Dose: Not Given Metoprolol Tartrate (Lopressor) 25 mg PO BID [facility] Last Admin: 09/16/18 17:11 Dose: 25 mg Verapamil HCl (Calan Tab) 40 mg PO DAILY [facility] Last Admin: 09/16/18 10:02 Dose: Not Given Results - Vital Signs Recent Vital Signs: Last Vital Signs Temp 98.6 F 09/16/18 23:29 Pulse 65 09/16/18 23:29 Resp 16 09/16/18 23:29 BP 121/51 L 09/16/18 23:29 Pulse Ox 97 09/16/18 23:29 - Labs Result Diagrams: 09/15/18 16:54 09/16/18 08:00 Labs: Laboratory Results - last 24 hr 09/16/18 09/16/18 09/16/18 08:00 17:00 17:00 Sodium 142 Potassium 4.0 Chloride 112 H Carbon Dioxide 24 Anion Gap 10 BUN 7 Creatinine 0.5 L Est GFR ( Amer) > 60 Est GFR (Non-Af Amer) > 60 Random Glucose 105 Hemoglobin A1c Calcium 9.3 Iron 34 L Total Bilirubin 2.4 H Direct Bilirubin 1.8 H AST 613 H D ALT 891 H Alkaline Phosphatase 187 H Total Protein 6.9 Albumin 3.8 Globulin 3.1 Albumin/Globulin Ratio 1.2 Triglycerides 93 Cholesterol 200 LDL Cholesterol Direct 113 HDL Cholesterol 58 Amylase 54 Lipase 27 Vitamin B12 714 Folate 11.8 09/16/18 17:00 Sodium Potassium Chloride Carbon Dioxide Anion Gap BUN Creatinine Est GFR ( Amer) Est GFR (Non-Af Amer) Random Glucose Hemoglobin A1c 6.2 Calcium Iron Total Bilirubin Direct Bilirubin AST ALT Alkaline Phosphatase Total Protein Albumin Globulin Albumin/Globulin Ratio Triglycerides Cholesterol LDL Cholesterol Direct HDL Cholesterol Amylase Lipase Vitamin B12 Folate Attending/Attestation - Attestation I have personally seen and examined this patient.: Yes I have fully participated in the care of the patient.: Yes I have reviewed all pertinent clinical information: Yes Notes (Text): This patient was seen and evaluated the earlier along with the GI fellow. This is an addendum to the GI consultation report dictated by the GI fellow. Patient does have elevated LFTs fever gallstones rule out CBD stone rule out cholangitis. History of gist tumor of the stomach status post endoscopy resection followed by a gastric wedge resection at [facility] for involvement of the margins Labs reviewed showed a significant elevated LFTs LDH etiology unclear MRCP shows no CBD stone We will request CPK and follow-up with LFTs. Further evaluation including EUS will be based on the clinical course 09/17/18 00:31
[2018-09-16] MEDS: Levothyroxine 75 MCG TAB PO SCH (10:02)
[2018-09-16] MEDS ORDERED: Sodium Chloride 0.9% 1,000 ML IV SCH (10:15)
--- NOTE | 2018-09-16 10:26 | CP.PCM.PCO ---
Additional Comments - Additional Comments Additional Comments: Pt presented in ED w/ c/o fever, body aches, mild headache, chills, urinary frequency and generalized weakness. She was seen and examined at bedside. C/O mild pain on R side of abdomen. No nausea or vomiting. Her transaminase was noted to be elevated and had a tmax of 100.8. GI on board and pt is pending MRCP. Will continue to follow. ITS Impressions Abdomen Ultrasound 09/15/18 17:29 IMPRESSION: Cholelithiasis. No sonographic evidence of acute cholecystitis. Mild fullness right collecting system. No visible obstructing lesion noted. Chest X-Ray 09/15/18 17:31 IMPRESSION: No active disease. Laboratory Results - last 24 hr 09/15/18 09/15/18 09/15/18 16:40 16:42 16:54 WBC 5.7 RBC 4.18 Hgb 12.7 Hct 38.1 MCV 91.1 MCH 30.4 MCHC 33.3 RDW 13.5 Plt Count 245 MPV 11.1 H Neut % (Auto) 87.3 H Lymph % (Auto) 6.6 L [place] % (Auto) 5.4 Eos % (Auto) 0.5 L Baso % (Auto) 0.2 Lymph # (Auto) 0.4 L [place] # (Auto) 0.3 Eos # (Auto) 0.0 Baso # (Auto) 0.01 Absolute Neuts (auto) 4.99 PT 12.0 INR 1.08 APTT 38.8 H pO2 70 H VBG pH 7.41 VBG pCO2 32.0 L VBG HCO3 20.3 L VBG Total CO2 21.3 L VBG O2 Sat (Calc) 96.8 H VBG Base Excess -3.4 L VBG Potassium 3.8 Sodium 135.0 Chloride 107.0 Glucose 140 H Lactate 1.2 FiO2 21.0 Potassium Carbon Dioxide Anion Gap BUN Creatinine Est GFR ( Amer) Est GFR (Non-Af Amer) Random Glucose Calcium Magnesium Total Bilirubin Direct Bilirubin AST ALT Alkaline Phosphatase Lactate Dehydrogenase Total Protein Albumin Globulin Albumin/Globulin Ratio Lipase Venous Blood Potassium 3.8 Urine Color Urine Appearance Urine pH Ur Specific [place] Urine Protein Urine Glucose (UA) Urine Ketones Urine Blood Urine Nitrate Urine Bilirubin Urine Urobilinogen Ur Leukocyte Esterase Urine RBC Urine WBC Ur Epithelial Cells Acetaminophen Hepatitis A IgM Ab Hep Bs Antigen Hep B Core IgM Ab Hepatitis C Antibody Influenza Typ A,B (EIA) 09/15/18 09/15/18 09/15/18 16:54 16:54 16:54 WBC RBC Hgb Hct MCV MCH MCHC RDW Plt Count MPV Neut % (Auto) Lymph % (Auto) [place] % (Auto) Eos % (Auto) Baso % (Auto) Lymph # (Auto) [place] # (Auto) Eos # (Auto) Baso # (Auto) Absolute Neuts (auto) PT INR APTT pO2 VBG pH VBG pCO2 VBG HCO3 VBG Total CO2 VBG O2 Sat (Calc) VBG Base Excess VBG Potassium Sodium 137 Chloride 107 Glucose Lactate FiO2 Potassium 4.0 Carbon Dioxide 22 Anion Gap 12 BUN 15 Creatinine 0.7 Est GFR ( Amer) > 60 Est GFR (Non-Af Amer) > 60 Random Glucose 145 H Calcium 9.9 Magnesium 2.2 Total Bilirubin 2.4 H Direct Bilirubin AST 1263 H ALT 1338 H Alkaline Phosphatase 188 H D Lactate Dehydrogenase Total Protein 7.5 Albumin 4.2 Globulin 3.3 Albumin/Globulin Ratio 1.3 Lipase 54 Venous Blood Potassium Urine Color Urine Appearance Urine pH Ur Specific [place] Urine Protein Urine Glucose (UA) Urine Ketones Urine Blood Urine Nitrate Urine Bilirubin Urine Urobilinogen Ur Leukocyte Esterase Urine RBC Urine WBC Ur Epithelial Cells Acetaminophen Hepatitis A IgM Ab Negative Hep Bs Antigen Negative Hep B Core IgM Ab Negative Hepatitis C Antibody Negative Influenza Typ A,B (EIA) 09/15/18 09/15/18 09/15/18 16:54 16:54 17:00 WBC RBC Hgb Hct MCV MCH MCHC RDW Plt Count MPV Neut % (Auto) Lymph % (Auto) [place] % (Auto) Eos % (Auto) Baso % (Auto) Lymph # (Auto) [place] # (Auto) Eos # (Auto) Baso # (Auto) Absolute Neuts (auto) PT INR APTT pO2 VBG pH VBG pCO2 VBG HCO3 VBG Total CO2 VBG O2 Sat (Calc) VBG Base Excess VBG Potassium Sodium Chloride Glucose Lactate FiO2 Potassium Carbon Dioxide Anion Gap BUN Creatinine Est GFR ( Amer) Est GFR (Non-Af Amer) Random Glucose Calcium Magnesium Total Bilirubin Direct Bilirubin AST ALT Alkaline Phosphatase Lactate Dehydrogenase 3234 H Total Protein Albumin Globulin Albumin/Globulin Ratio Lipase Venous Blood Potassium Urine Color Urine Appearance Urine pH Ur Specific [place] Urine Protein Urine Glucose (UA) Urine Ketones Urine Blood Urine Nitrate Urine Bilirubin Urine Urobilinogen Ur Leukocyte Esterase Urine RBC Urine WBC Ur Epithelial Cells Acetaminophen 17.0 Hepatitis A IgM Ab Hep Bs Antigen Hep B Core IgM Ab Hepatitis C Antibody Influenza Typ A,B (EIA) Negative for flu a/b 09/15/18 09/16/18 17:53 08:00 WBC RBC Hgb Hct MCV MCH MCHC RDW Plt Count MPV Neut % (Auto) Lymph % (Auto) [place] % (Auto) Eos % (Auto) Baso % (Auto) Lymph # (Auto) [place] # (Auto) Eos # (Auto) Baso # (Auto) Absolute Neuts (auto) PT INR APTT pO2 VBG pH VBG pCO2 VBG HCO3 VBG Total CO2 VBG O2 Sat (Calc) VBG Base Excess VBG Potassium Sodium 142 Chloride 112 H Glucose Lactate FiO2 Potassium 4.0 Carbon Dioxide 24 Anion Gap 10 BUN 7 Creatinine 0.5 L Est GFR ( Amer) > 60 Est GFR (Non-Af Amer) > 60 Random Glucose 105 Calcium 9.3 Magnesium Total Bilirubin 2.4 H Direct Bilirubin 1.8 H AST 613 H D ALT 891 H Alkaline Phosphatase 187 H Lactate Dehydrogenase Total Protein 6.9 Albumin 3.8 Globulin 3.1 Albumin/Globulin Ratio 1.2 Lipase Venous Blood Potassium Urine Color Light yellow Urine Appearance Clear Urine pH 7.0 Ur Specific [place] <= 1.005 Urine Protein Negative Urine Glucose (UA) Negative Urine Ketones Negative Urine Blood Small H Urine Nitrate Negative Urine Bilirubin Negative Urine Urobilinogen 0.2 Ur Leukocyte Esterase Negative Urine RBC 1 - 3 H Urine WBC None Ur Epithelial Cells None Acetaminophen Hepatitis A IgM Ab Hep Bs Antigen Hep B Core IgM Ab Hepatitis C Antibody Influenza Typ A,B (EIA)
[2018-09-16] MEDS: cefTRIAXone 1 gm 1 GM/100 ML BAG IVPB SCH (10:45)
--- NOTE | 2018-09-16 12:25 | MRI ---
Date of service: 09/16/2018 PROCEDURE: Magnetic Resonance Cholangiopancreatography HISTORY: Elevated liver function tests, fever COMPARISON: None available. TECHNIQUE: Multiplanar, multisequence MR images of the abdomen were obtained, including heavily T2 weighted MRCP images of the biliary system. Rotating maximum intensity projection images of the biliary system were generated. FINDINGS: MRCP: The common bile duct is of a normal caliber. No evidence of choledocholithiasis. No intrahepatic biliary ductal dilatation. LIVER: Unremarkable. GALLBLADDER: Small gallstones SPLEEN: Unremarkable. PANCREAS: Unremarkable. ADRENALS: Unremarkable. KIDNEYS: Unremarkable. AORTA: No aneurysm. ASCITES: None. OTHER FINDINGS: None. IMPRESSION: Small gallstones. No evidence of common duct stone or obstruction
[2018-09-16 21:47] LABS: FOLATE 11.8 ng/mL
--- NOTE | 2018-09-16 22:56 | HP ---
DATE OF EXAM: 09/16/2018 The patient was seen and examined on 09/16/2018. CHIEF COMPLAINTS: Fever, abdominal pain. HISTORY OF PRESENT ILLNESS: Ms. Margarita Elliott is a 78-year-old female with past medical history of hypertension, hypercholesteremia, came to the emergency department complaining of fever and body aches since 2 days. The patient also noted some mild headache, chills, urinary frequency, and generalized weakness. The patient found that she has fever 101.3. Denies nasal congestion, headache, or dizziness. No photophobia. No chest pain, shortness of breath, coughing, nausea, vomiting, or diarrhea. No hematuria. No hematochezia. We admitted the patient for a GI consult. The patient went for MRCP today. I spoke to the patient's daughter. Abdominal ultrasound is done. PAST MEDICAL HISTORY: Hypertension, hypothyroidism, appendectomy. FAMILY HISTORY: Father and mother noncontributory. HABITS: Never smoked. No drugs. No ethanol. ALLERGIES: THE PATIENT IS NOT ALLERGIC WITH ANY MEDICATIONS. HOME MEDICATIONS: Aspirin, Synthroid, Lopressor, Zocor, verapamil. REVIEW OF SYSTEMS: The patient was seen and examined at the bedside, looking comfortable. Abdominal pain is better, headache is better. Family was sitting on the bedside also. I spoke to the patient's daughter on the phone. No fever. No photophobia. No shortness of breath, cough, or chest pain. No nausea, vomiting, or diarrhea. No dysuria, hematuria. PHYSICAL EXAMINATION VITAL SIGNS: Temperature 98.7, pulse 74, respiratory rate 18, blood pressure 123/50, pulse oximetry 96%. HEENT: Head; normocephalic, atraumatic. Eyes; PERRLA. Extraocular muscles intact. Conjunctivae clear. Nose patent. Mucous membranes moist. NECK: Supple. No carotid bruits. No JVD. No thyromegaly. CHEST: Bilaterally symmetrical. HEART: S1 and S2 positive. LUNGS: Clear to auscultation. ABDOMEN: Soft. Bowel sounds present. No organomegaly. EXTREMITIES: No edema. No cyanosis. NEUROLOGIC: The patient is awake and alert, follows simple commands. LABORATORY DATA: White blood cells 5.7, hemoglobin 12.7, hematocrit 38.1, platelets 245. Sodium 142, potassium 4, BUN 7, creatinine 0.9. ASSESSMENT AND PLAN: Ms. Margarita Elliott is a 78-year-old lady with hyperchloremia, hyperglycemia, abnormal liver function test, trending down, back for magnetic resonance cholangiopancreatography called by Dr. Tommie Childers, small gallstones, no evidence of common duct stones or obstruction. The patient went for abdominal ultrasound; cholelithiasis, no sonographic evidence of acute cholecystitis, No visible obstructing lesions noted. Chest x-ray noted by me, no active disease. Gastroenterology evaluation appreciated. There is no history of dyslipidemia, hypertension, or hypothyroidism. As per electronic medical records and later gastric wedge resection, these picture rule out choledocholithiasis and underlying obstructive lesions, fibroids normal size, rule out cholangitis. Started ceftriaxone. Hold Lipitor in settling of acute liver. Repeat liver function test. Repeat labs. The patient has to go to Esophagogastroduodenoscopy to have endoscopic ultrasound or an endoscopic retrograde cholangiopancreatography. We will follow up. Cinthia Morrow MD MTDD
[2018-09-17 07:17] LABS: HEMOGLOBIN 12.3 g/dL (12.0-16.0); MEAN CELL VOLUME 91.5 fl (80.0-105.0); MEAN CORPUSCULAR HEMOGLOBIN 29.9 pg (25.0-35.0); MEAN CORPUSCULAR HGB CONC 32.6 g/dl (31.0-37.0); MEAN PLATELET VOLUME 10.6 fl (7.0-11.0); RBC 4.12 10^6/uL (3.5-6.1); RED CELL DISTRIBUTION WIDTH 14.2 % (11.5-14.5); WHITE BLOOD COUNT 4.3 10^3/uL (4.5-11.0)
[2018-09-17 07:31] LABS: BLOOD UREA NITROGEN 5 mg/dL (7-21); CALCIUM 8.7 mg/dL (8.4-10.5); GFR NON-AFRICAN AMERICAN > 60
[2018-09-17 08:47] LABS: ALB/GLOB RATIO 1.2 (1.1-1.8); ALBUMIN 3.6 g/dL (3.0-4.8); BILIRUBIN,DIRECT 1.3 mg/dL (0.0-0.4)
[2018-09-17] MEDS: cefTRIAXone 1 gm 1 GM/100 ML BAG IVPB SCH (09:59)
[2018-09-17] MEDS: Levothyroxine 75 MCG TAB PO SCH (10:00)
[2018-09-17] MEDS ORDERED: Iohexol 240 (50 ml) ONE (13:11)
[2018-09-17] MEDS ORDERED: Indomethacin 50 MG Suppository PR ONE (13:12)
[2018-09-17] MEDS ORDERED: Glucagon Recombinant 1 mg Inj ONE (13:12)
[2018-09-17] MEDS ORDERED: Propofol 10 mg/ml Inj (20 ML) ONE (17:29)
[2018-09-17] MEDS ORDERED: Succinylcholine 200 mg/10 ml Inj IV ONE (17:29)
[2018-09-17] MEDS ORDERED: Midazolam 2 MG/2 ML VIAL ONE (17:29)
[2018-09-17] MEDS ORDERED: Sodium Chloride 0.9% 1,000 ML IV SCH (18:45)
[2018-09-18] MEDS: cefTRIAXone 1 gm 1 GM/100 ML BAG IVPB SCH (09:21)
[2018-09-18] MEDS: Levothyroxine 75 MCG TAB PO SCH (09:21)
[2018-09-18 09:39] LABS: ALB/GLOB RATIO 1.2 (1.1-1.8); ALBUMIN 3.9 g/dL (3.0-4.8); BILIRUBIN,DIRECT 0.9 mg/dL (0.0-0.4)
--- NOTE | 2018-09-18 09:42 | CP.PCM.PN ---
<FeguadalupeloryDamian - Last Filed: 09/18/18 11:10> Subjective - Date & Time of Evaluation Date of Evaluation: 09/18/18 Time of Evaluation: 08:00 - Subjective Subjective: PGY6 GI Fellow Progress Note Patient seen and examined bedside this morning. The patient has no complaints at this time and states she is feeling better. Denies fever, chills, abdominal pain, nausea, vomiting. 12 system ROS performed and negative except where stated Objective - Vital Signs/Intake and Output Vital Signs (last 24 hours): Temp Pulse Resp BP Pulse Ox 98.2 F 66 16 148/52 L 98 09/18/18 06:00 09/18/18 06:00 09/18/18 06:00 09/18/18 06:00 09/18/18 06:00 - Medications Medications: Current Medications Atorvastatin Calcium (Lipitor) 10 mg PO [facility] Last Admin: 09/15/18 22:42 Dose: 10 mg Ceftriaxone Sodium (Rocephin 1 Gram Ivpb) 1 gm in 100 mls @ 100 mls/hr IVPB DAILY [facility] [place]; Protocol Stop: 09/19/18 10:59 Last Admin: 09/18/18 09:21 Dose: 100 mls/hr Sodium Chloride (Sodium Chloride 0.9%) 1,000 mls @ 75 mls/hr IV .[id number] [facility] [place] Last Admin: 09/16/18 10:46 Dose: 75 mls/hr Levothyroxine Sodium (Synthroid) 75 mcg PO DAILY [facility] [place] Last Admin: 09/18/18 09:21 Dose: 75 mcg Metoprolol Tartrate (Lopressor) 25 mg PO BID [facility] [place] Last Admin: 09/18/18 09:21 Dose: 25 mg Valsartan (Diovan) 80 mg PO DAILY [facility] [place] - Labs Labs: 09/17/18 07:00 09/17/18 07:00 PT 12.0 SECONDS (9.4-12.5) 09/15/18 16:42 INR 1.08 09/15/18 16:42 APTT 38.8 Seconds (26.9-38.3) H 09/15/18 16:42 - Constitutional Appears: Non-toxic, No Acute Distress - Eye Exam Eye Exam: EOMI, PERRL - ENT Exam ENT Exam: Mucous Membranes Moist - Respiratory Exam Respiratory Exam: Clear to Ausculation Bilateral. absent: Rales, Rhonchi, Wheezes - Cardiovascular Exam Cardiovascular Exam: RRR, +S1, +S2 - GI/Abdominal Exam GI & Abdominal Exam: Soft, Normal Bowel Sounds. absent: Distended, Firm, Guarding, Rigid, Tenderness, Organomegaly - Extremities Exam Extremities Exam: Normal Inspection. 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 who presented to the ER with complaint of fever and malaise -Cholelithiasis -Elevated LFTs - suspect resolved choledocolithiasis -Febrile illness, suspect cholangitis; resolved Plan: -S/P EGD/EUS - no evidence for choledocolithiasis, thus no ERCP performed -LFTs downtrending today -Finish course of Ceftriaxone 1g IV QD -Diet as tolerated -Surgery consulted for evaluation for cholecystectomy -OK for D/C from GI standpoint if no plans for cholecystectomy <Juventino Snyder V - Last Filed: 09/18/18 23:36> Objective - Vital Signs/Intake and Output Vital Signs (last 24 hours): Temp Pulse Resp BP Pulse Ox 98.3 F 56 L 18 136/65 97 09/18/18 13:50 09/18/18 13:50 09/18/18 13:50 09/18/18 13:50 09/18/18 13:50 Intake and Output: 09/18/18 09/19/18 18:59 06:59 Intake Total 720 Balance 720 - Labs Labs: 09/17/18 07:00 09/17/18 07:00 PT 12.0 SECONDS (9.4-12.5) 09/15/18 16:42 INR 1.08 09/15/18 16:42 APTT 38.8 Seconds (26.9-38.3) H 09/15/18 16:42 Attending/Attestation - Attestation I have personally seen and examined this patient.: Yes I have fully participated in the care of the patient.: Yes I have reviewed all pertinent clinical information, including history, physical exam and plan: Yes Notes (Text): This patient was seen and evaluated earlier today with the resident. There is an addendum to the GI progress report dictated by the fellow. Status post EUS CBD normal with no stones. LFT shows downward trend. EGD also revealed a duodenal ulcer with antral gastritis biopsies pending for H. pylori Surgical note reviewed. Plan for elective cholecystectomy. Continue PPI. Discussed with Dr. Morrow earlier today 09/18/18 23:34
[2018-09-18] MEDS ORDERED: VALSARTAN 80 MG PO SCH (11:15)
--- NOTE | 2018-09-18 13:22 | CP.PCM.PCO ---
Additional Comments - Additional Comments Additional Comments: Pt seen and examined today. In no acute distress. Denies nausea, vomiting or abdominal pain. She is tolerating current diet. D/W GI, recommends surgical consult -?cholecystectomy and if no surgical intervention, pt is cleared for dc from GI standpoint. D/W Dr. Mcgee. Awaiting surgical recommendation. Will continue to follow.
--- NOTE | 2018-09-18 13:43 | CP.PCM.CON ---
<Bry Zamora - Last Filed: 09/18/18 13:45> History of Present Illness - History of Present Illness History of Present Illness: General Surgery Consult: Dr Hu Patient is a 78F w/ PMH of HTN, HLD, hypothyroidism, GIST s/p EMR followed by wedge resection at [facility] [place]. Pt presents on 09/16/18 with new onset fever, malaise, myalgias, and a vaque RUQ pain. Pt reports her pain migrated to the right flank and up to the right shoulder. She also complains of decreased urine output prior to admission. In the ED workup noted elevated LFTs w/ dilated CBD on US and cholelithiasis without obvious cholecystitis or choledocholithiasis. She is now status post ERCP/EUS which demonstrated no filling defect within the CBD. Her LFTs are down trending, her symptoms have resolved. Presumed dx is pt likely passed a biliary stone. 12 point ROS negative except where stated PMH: as above PSH: Gastric wedge resection for GIST, appendectomy Review of Systems - Constitutional Constitutional: absent: Anorexia, Chills, Weakness - Cardiovascular Cardiovascular: absent: Chest Pain, Leg Edema - Respiratory Respiratory: absent: Cough, Dyspnea - Gastrointestinal Gastrointestinal: absent: Abdominal Pain, Belching, Heartburn, Melena, Nausea Past Patient History - Past Medical History & Family History Past Medical History?: Yes - Past Social History Smoking Status: Never Smoked - CARDIAC Hx Cardiac Disorders: Yes Hx Hypertension: Yes - PULMONARY Hx Respiratory Disorders: No - NEUROLOGICAL Hx Neurological Disorder: No - HEENT Hx HEENT Problems: No - RENAL Hx Chronic Kidney Disease: No - ENDOCRINE/METABOLIC Hx Endocrine Disorders: Yes Hx Hypothyroidism: Yes - HEMATOLOGICAL/ONCOLOGICAL Hx Blood Transfusions: No - INTEGUMENTARY Hx Dermatological Problems: No - MUSCULOSKELETAL/RHEUMATOLOGICAL Hx Musculoskeletal Disorders: No - GASTROINTESTINAL Hx Gastrointestinal Disorders: Yes - GENITOURINARY/GYNECOLOGICAL Hx Genitourinary Disorders: No - PSYCHIATRIC Hx Psychophysiologic Disorder: No - SURGICAL HISTORY Hx Surgeries: Yes - ANESTHESIA Hx Anesthesia Reactions: No Hx Malignant Hyperthermia: No Meds Allergies/Adverse Reactions: Allergies Allergy/AdvReac Type Severity Reaction Status Date / Time No Known Allergies Allergy Verified 12/04/16 13:56 - Medications Medications: Current Medications Atorvastatin Calcium (Lipitor) 10 mg PO [facility] Last Admin: 09/15/18 22:42 Dose: 10 mg Home Med (Home Med) 80 unit PO DAILY [facility] Last Admin: 09/18/18 11:26 Dose: 80 unit Ceftriaxone Sodium (Rocephin 1 Gram Ivpb) 1 gm in 100 mls @ 100 mls/hr IVPB DAILY [facility]; Protocol Stop: 09/19/18 10:59 Last Admin: 09/18/18 09:21 Dose: 100 mls/hr Sodium Chloride (Sodium Chloride 0.9%) 1,000 mls @ 75 mls/hr IV .[id number] [facility] Last Admin: 09/16/18 10:46 Dose: 75 mls/hr Levothyroxine Sodium (Synthroid) 75 mcg PO DAILY [facility] Last Admin: 09/18/18 09:21 Dose: 75 mcg Metoprolol Tartrate (Lopressor) 25 mg PO BID [facility] Last Admin: 09/18/18 09:21 Dose: 25 mg Physical Exam - Constitutional Appears: Non-toxic, No Acute Distress - Head Exam Head Exam: NORMAL INSPECTION - Eye Exam Eye Exam: absent: Scleral icterus - ENT Exam ENT Exam: Mucous Membranes Moist - Respiratory Exam Respiratory Exam: absent: Accessory Muscle Use, Respiratory Distress - Cardiovascular Exam Cardiovascular Exam: REGULAR RHYTHM. absent: Tachycardia - GI/Abdominal Exam GI & Abdominal Exam: Soft. absent: Distended, Firm, Guarding, Tenderness - Extremities Exam Extremities exam: Negative for: pedal edema - Neurological Exam Neurological exam: Alert, Oriented x3 - Psychiatric Exam Psychiatric exam: Normal Affect, Normal Mood - Skin Skin Exam: Normal Color, Warm Results - Vital Signs Recent Vital Signs: Last Vital Signs Temp 98.2 F 09/18/18 06:00 Pulse 66 09/18/18 06:00 Resp 16 09/18/18 06:00 BP 148/52 L 09/18/18 06:00 Pulse Ox 98 09/18/18 06:00 - Labs Result Diagrams: 09/17/18 07:00 09/17/18 07:00 Labs: Laboratory Results - last 24 hr 09/18/18 09:15 Total Bilirubin 1.2 Direct Bilirubin 0.9 H AST 205 H D ALT 513 H Alkaline Phosphatase 224 H D Total Protein 7.1 Albumin 3.9 Globulin 3.2 Albumin/Globulin Ratio 1.2 Assessment & Plan - Assessment and Plan (Free Text) Assessment: 78F with choledocholithiasis possible cholangitis; resolved Plan: agree with GI plans adv diet as tolerated recommend interval-delayed cholecystectomy please have pt follow up as out-patient to schedule elective devendra d/w Dr Fritz Zamora, PGY4 <Gideon Hu - Last Filed: 09/19/18 08:01> Results - Vital Signs Recent Vital Signs: Last Vital Signs Temp 98.3 F 09/18/18 13:50 Pulse 56 L 09/18/18 13:50 Resp 18 09/18/18 13:50 BP 136/65 09/18/18 13:50 Pulse Ox 97 09/18/18 13:50 - Labs Result Diagrams: 09/17/18 07:00 09/17/18 07:00 Labs: Laboratory Results - last 24 hr 09/18/18 09:15 Total Bilirubin 1.2 Direct Bilirubin 0.9 H AST 205 H D ALT 513 H Alkaline Phosphatase 224 H D Total Protein 7.1 Albumin 3.9 Globulin 3.2 Albumin/Globulin Ratio 1.2 Assessment & Plan - Assessment and Plan (Free Text) Plan: Dx S/P Cholangitis(Passed CD Stone)/Mult comorbidities Stefano Delay surgery(Interval:next month) This consult done under my direct supervision Ambar Hu MD FACS
[2018-09-18 13:51] VITALS: BP 136/65; PULSE 56; RESP 18; TEMP 98.3; O2SAT 97
--- NOTE | 2018-09-19 08:55 | DS ---
The patient was seen and examined at the bedside on 09/18/2018. CHIEF COMPLAINTS: Fever, abdominal pain. HISTORY OF PRESENT ILLNESS: Ms. Margarita Elizondo is a 78 years old female with past medical history of hypertension and hypercholesteremia, came to the emergency department complaining of fever and body aches since 2 days before admission. The patient also noted some mild headache, chills, urinary frequency and generalized weakness. The patient has fever of 101.3, denies chest pain, nausea or vomiting. We imaged the patient. A Gastroenterology consult. MRCP done. Liver enzymes were the high, trending down. According to GI, maybe the patient had stone and passed that. Then we called a Surgical consult with Dr. Lee. According to him, the patient will need a cholecystectomy, but interval later on. GI and surgery cleared the patient for discharge. The patient was discharged by nurse practitioner and medications were provided on the bedside. PAST MEDICAL HISTORY: Hypertension, hypothyroidism, appendectomy. FAMILY HISTORY: Father and mother noncontributory. HABITS: Never smoked, no drugs, no ethanol. ALLERGIES: THE PATIENT IS NOT ALLERGIC WITH ANY MEDICATION. HOME MEDICATIONS: Reviewed by me. REVIEW OF SYSTEMS: The patient is seen and examined at the bedside, looking comfortable. At this moment, no fever, no chills. No hematuria, no hematochezia. No headaches, no dizziness. No chest pain, no palpitation. PHYSICAL EXAMINATION: VITAL SIGNS: Temperature 98.2, pulse 66, respiratory rate 16, blood pressure 148/52, pulse oximetry 98%. HEENT: Head; normocephalic and atraumatic. Eyes; PERRLA. Extraocular muscles intact. Conjunctiva clear. Nose patient. Mucous membranes moist. NECK: Supple. No carotid bruits. No JVD or thyromegaly. CHEST: Bilaterally symmetrical. HEART: S1 and S2 positive. LUNGS: Clear to auscultation. ABDOMEN: Soft. Bowel sounds present. No organomegaly. EXTREMITIES: No edema, no cyanosis. NEUROLOGIC: The patient is awake and alert, moving all four extremities. No focal deficits. LABORATORY DATA: White blood cells 4.3, hemoglobin 12.3, hematocrit 37.7, platelets 205. Sodium 141, potassium 3.35, BUN 5, creatinine 0.5, glucose 92. ASSESSMENT AND PLAN: Ms. Margarita Elizondo is a 78 years old lady with anemia, hypokalemia, hyperchloremia, with choledocholithiasis, possibly pharyngitis, resolved. Gastroenterology saw the patient. Surgery said that they agree with the Gastroenterology plans. Advance diet as tolerated. Recommended interval delayed cholecystectomy. Medications are provided on the bedside. The patient has history of hypertension, hypercholesterolemia, hypothyroidism, gastrointestinal stromal tumor endoscopic mucosal resection followed by wedge resection at [facility]. Liver function test improved. Need to repeat the liver function test as outpatient. Cinthia Morrow MD
== END 2018-09-18 17:22 | disposition home or self-care (01) | DRG 446 ==
LOC: ED 15:55 → ERH 18:29 → 5RSO 21:11
PROVIDERS: ADMIT Internal Medicine; ATTEND Internal Medicine
DX: K80.20 Calculus of gallbladder without cholecystitis without obstruction (principal); R50.9 Fever, unspecified; R53.1 Weakness; R51 Headache; R35.0 Frequency of micturition; Z79.890 Hormone replacement therapy; Z79.899 Other long term (current) drug therapy; R74.0 Nonspecific elevation of levels of transaminase and lactic acid dehydrogenase [LDH]; Z85.00 Personal history of malignant neoplasm of unspecified digestive organ; Z90.49 Acquired absence of other specified parts of digestive tract; D64.9 Anemia, unspecified; E03.9 Hypothyroidism, unspecified; E78.00 Pure hypercholesterolemia, unspecified; E78.5 Hyperlipidemia, unspecified; E87.6 Hypokalemia; E87.8 Other disorders of electrolyte and fluid balance, not elsewhere classified; I10 Essential (primary) hypertension; I45.10 Unspecified right bundle-branch block; K57.30 Diverticulosis of large intestine without perforation or abscess without bleeding